=== PATIENT | female | born 1995 | race Caucasian/White ===

== ENCOUNTER 2016-03-16 17:47 | Emergency (ER) | payer OTHER ==
[2016-03-16] MEDS ORDERED: Ketorolac INJ* 30 MG/ML 1 ML VIAL IV ONE (19:00)
[2016-03-16] MEDS: NS 0.9% 1000 ML* 2,000 ML IV ONE (19:37)
[2016-03-16 19:45] LABS: Hematocrit 37 % (35-47); Hemoglobin 12.2 g/dl (12.0-16.0); Mean Corpuscular HGB Conc 33 g/dl (31-36); Mean Corpuscular Hemoglobin 30 pg (27-31); Mean Corpuscular Volume 89 fL (80-97); Mean Platelet Volume 8 um3 (7.4-10.4); Red Blood Count 4.11 10^6/ul (4.0-5.4); Red Cell Distribution Width 13 % (10.5-15); White Blood Count 5.1 10^3/ul (3.5-10.8)
[2016-03-16 19:57] LABS: Urine Bacteria Absent (Absent); Urine Bilirubin Negative (Negative); Urine Glucose Negative (Negative); Urine Nitrite Negative (Negative)
[2016-03-16 20:04] LABS: ALT 11 U/L (7-52); AST 17 U/L (13-39); Albumin 4.3 g/dL (3.2-5.2); Alkaline Phosphatase 42 U/L (34-104); Anion Gap 5 mmol/L (2-11); BUN/Creatinine Ratio 15.4 (8-20); Blood Urea Nitrogen 10 mg/dL (6-24); C Reactive Protein < 1.00 mg/L (< 5.00); CO2 Carbon Dioxide 25 mmol/L (22-32); Calcium 9.5 mg/dL (8.6-10.3); Chloride 107 mmol/L (101-111); EGFR African American 149.4 (>60); EGFR Non-African American 116.2 (>60); Globulin 2.8 g/dL (2-4); Glucose 93 mg/dL (70-100); Potassium 3.9 mmol/L (3.5-5.0); Sodium 137 mmol/L (133-145); Total Protein 7.1 g/dL (6.4-8.9)
[2016-03-16 20:22] LABS: TSH (Thyroid Stimulating Horm) 1.73 mcIU/mL (0.34-5.60)
--- NOTE | 2016-03-16 21:25 | RAD ---
Indication: Heavy vaginal bleeding. Pelvic pain. First day of menstruation. Comparison: None. Technique: Transvaginal pelvic ultrasound. Report: 7.0 x 3.0 x 4.3 cm anteverted uterus. 7.7 mm endometrium. 3.5 x 2.3 x 3.0 cm RIGHT ovary with documented vascular flow is remarkable for small follicles only. 2.8 x 2.3 x 2.4 cm LEFT ovary with documented vascular flow is remarkable for small follicles only. No visualized extra ovarian adnexal region lesions. No significant free pelvic fluid evident. IMPRESSION: Negative pelvic ultrasound.
[2016-03-16] MEDS ORDERED: HYDROcodone/ACETAMIN 5-325 MG* 1 TAB PO ONE (22:19)
--- NOTE | 2016-03-16 22:27 | ED ---
Jenn Chinchilla Erika, scribed for Valentin Martinez MD on 03/16/16 at 1859 . GI/ HPI - HPI Summary HPI Summary: Patient is a 20-year-old female presenting to the ED with a CC of midline vaginal pain during menstruation. Pt reports that when she woke up at 14:00 today, she noticed the pain as well as the start of her period. Pain was initially a cramping pain which temporarily went away, but then returned and has gradually worsened. Currently, she rates pain a 9/10, and describes the pain as feeling similar to a muscle tightness. Pain is not aggravated or alleviated by anything, although pt has been applying pressure to her lower abdomen. Pain does not radiate. Associated symptoms include fever, as well as diaphoresis, chills, decreased appetite, and nausea for the past 2 days. Today, pt also developed increased urinary frequency and dysuria described as the cramping vaginal pain. Pt also reports constipation, unchanged from baseline. She denies vomiting, diarrhea, and blood in stool. Pt reports that she did not have cramping with her periods until 6 months ago, and states her period have become heavier since then. Today, period is even heavier than usual and contains clots. She has never experienced these symptoms before. LNMP 3 weeks ago. Pt is sexually active, and does not take oral contraceptives. A0. Hx concussion at age 16 that has lead to possible seizures with panic disorder - pt takes gabapentin but does not take any psych medications. FHx cervical cancer in mother; father's history is unknown. Pt does not smoke, rarely drinks , and occasionally uses marijuana. - History of Current Complaint Chief Complaint: EDAbdPain Time Seen by Provider: 03/16/16 18:29 Stated Complaint: ABD CRAMPING Hx Obtained From: Patient Onset/Duration: Started Hours Ago, Atraumatic, Still Present Timing: Constant Current Severity: Moderate Pain Intensity: 10 Pain Characteristics: Cramping Associated Signs and Symptoms: Positive: Nausea, Fever, Change in Appetite - Allergy/Home Medications Allergies/Adverse Reactions: Allergies Allergy/AdvReac Type Severity Reaction Status Date / Time No Known Allergies Allergy Unverified 04/15/13 08:46 PMH/Surg Hx/FS Hx/Imm Hx Endocrine/Hematology History: Denies: Hx Anticoagulant Therapy, Hx Diabetes, Hx Thyroid Disease Cardiovascular History: Denies: Hx Hypertension, Hx Pacemaker/ICD Respiratory History: Denies: Hx Asthma, Hx Chronic Obstructive Pulmonary Disease (COPD) GI History: Denies: Hx Ulcer History: Denies: Hx Renal Disease Sensory History: Denies: Hx Hearing Aid Neurological History: Denies: Hx Dementia, Hx Seizures Psychiatric History: Denies: Hx Panic Disorder, Hx Substance Abuse Infectious Disease History: No Infectious Disease History: Denies: Hx Hepatitis, Hx Human Immunodeficiency Virus (HIV), Traveled Outside the [place] in Last 30 Days - Family History Known Family History: Positive: Other - Cervical CA - Social History Lives: With Family Alcohol Use: Rare Hx Substance Use: Yes Substance Use Type: Reports: Marijuana Hx Tobacco Use: No Smoking Status (MU): Never Smoked Tobacco Review of Systems Positive: Fever, Chills, Skin Diaphoresis Gastrointestinal: Other - constipation Positive: Nausea - decreased appetite. Negative: Vomiting, Diarrhea Genitourinary: Other - Vaginal pain, clots with menstruation Positive: dysuria, frequency All Other Systems Reviewed And Are Negative: Yes Physical Exam Triage Information Reviewed: Yes Vital Signs On Initial Exam: Initial Vitals Temp Pulse Resp BP Pulse Ox 100.1 F 94 24 150/98 100 03/16/16 17:59 03/16/16 17:59 03/16/16 17:59 03/16/16 17:59 03/16/16 17:59 Vital Signs Reviewed: Yes Appearance: Positive: Well-Appearing, Pain Distress - Moderate Skin: Positive: Warm, Skin Color Reflects Adequate Perfusion, Dry Head/Face: Positive: Normal Head/Face Inspection Eyes: Positive: EOMI, AB ENT: Positive: Normal ENT inspection Neck: Positive: Supple, Nontender Respiratory/Lung Sounds: Positive: Clear to Auscultation, Breath Sounds Present Cardiovascular: Positive: Tachycardia - with regular rhythm Abdomen Description: Positive: Nontender, Soft, Other: - Some relief of pain with palpation of the abdomen Bowel Sounds: Positive: Present Musculoskeletal: Positive: Normal, Strength/ROM Intact Neurological: Positive: Normal, Sensory/Motor Intact, Alert, Oriented to Person Place, Time Psychiatric: Positive: Affect/Mood Appropriate Diagnostics - Vital Signs Vital Signs Temp Pulse Resp BP Pulse Ox 03/16/16 17:59 100.1 F 94 24 150/98 100 - Laboratory Lab Results: Lab Results 03/16/16 03/16/16 03/16/16 Range/Units 19:25 19:25 19:25 WBC 5.1 (3.5-10.8) 10^3/ul RBC 4.11 (4.0-5.4) 10^6/ul Hgb 12.2 (12.0-16.0) g/dl Hct 37 (35-47) % MCV 89 (80-97) fL MCH 30 (27-31) pg MCHC 33 (31-36) g/dl RDW 13 (10.5-15) % Plt Count 257 (150-450) 10^3/ul MPV 8 (7.4-10.4) um3 Neut % (Auto) 62.0 (38-83) % Lymph % (Auto) 28.7 (25-47) % Phillips % (Auto) 7.3 (1-9) % Eos % (Auto) 1.3 (0-6) % Baso % (Auto) 0.7 (0-2) % Absolute Neuts (auto) 3.2 (1.5-7.7) 10^3/ul Absolute Lymphs (auto) 1.5 (1.0-4.8) 10^3/ul Absolute Monos (auto) 0.4 (0-0.8) 10^3/ul Absolute Eos (auto) 0.1 (0-0.6) 10^3/ul Absolute Basos (auto) 0 (0-0.2) 10^3/ul Absolute Nucleated RBC 0 10^3/ul Nucleated RBC % 0.1 INR (Anticoag Therapy) 0.94 (0.89-1.11) APTT 28.9 (26.0-36.3) seconds Sodium 137 (133-145) mmol/L Potassium 3.9 (3.5-5.0) mmol/L Chloride 107 (101-111) mmol/L Carbon Dioxide 25 (22-32) mmol/L Anion Gap 5 (2-11) mmol/L BUN 10 (6-24) mg/dL Creatinine 0.65 (0.51-0.95) mg/dL Est GFR ( Amer) 149.4 (>60) Est GFR (Non-Af Amer) 116.2 (>60) BUN/Creatinine Ratio 15.4 (8-20) Glucose 93 (70-100) mg/dL Lactic Acid (0.5-2.0) mmol/L Calcium 9.5 (8.6-10.3) mg/dL Total Bilirubin 0.40 (0.2-1.0) mg/dL AST 17 (13-39) U/L ALT 11 (7-52) U/L Alkaline Phosphatase 42 (34-104) U/L C-Reactive Protein < 1.00 (< 5.00) mg/L Total Protein 7.1 (6.4-8.9) g/dL Albumin 4.3 (3.2-5.2) g/dL Globulin 2.8 (2-4) g/dL Albumin/Globulin Ratio 1.5 (1-3) TSH 1.73 (0.34-5.60) mcIU/mL Beta HCG, Quant < 0.60 mIU/mL Urine Color Urine Appearance Urine pH (5-9) Ur Specific [place] (1.010-1.030) Urine Protein (Negative) Urine Ketones (Negative) Urine Blood (Negative) Urine Nitrate (Negative) Urine Bilirubin (Negative) Urine Urobilinogen (Negative) Ur Leukocyte Esterase (Negative) Urine WBC (Auto) (Absent) Urine RBC (Auto) (Absent) Ur Squamous Epith Cells (Absent) Urine Bacteria (Absent) Urine Glucose (Negative) 03/16/16 03/16/16 Range/Units 19:25 19:40 WBC (3.5-10.8) 10^3/ul RBC (4.0-5.4) 10^6/ul Hgb (12.0-16.0) g/dl Hct (35-47) % MCV (80-97) fL MCH (27-31) pg MCHC (31-36) g/dl RDW (10.5-15) % Plt Count (150-450) 10^3/ul MPV (7.4-10.4) um3 Neut % (Auto) (38-83) % Lymph % (Auto) (25-47) % Phillips % (Auto) (1-9) % Eos % (Auto) (0-6) % Baso % (Auto) (0-2) % Absolute Neuts (auto) (1.5-7.7) 10^3/ul Absolute Lymphs (auto) (1.0-4.8) 10^3/ul Absolute Monos (auto) (0-0.8) 10^3/ul Absolute Eos (auto) (0-0.6) 10^3/ul Absolute Basos (auto) (0-0.2) 10^3/ul Absolute Nucleated RBC 10^3/ul Nucleated RBC % INR (Anticoag Therapy) (0.89-1.11) APTT (26.0-36.3) seconds Sodium (133-145) mmol/L Potassium (3.5-5.0) mmol/L Chloride (101-111) mmol/L Carbon Dioxide (22-32) mmol/L Anion Gap (2-11) mmol/L BUN (6-24) mg/dL Creatinine (0.51-0.95) mg/dL Est GFR ( Amer) (>60) Est GFR (Non-Af Amer) (>60) BUN/Creatinine Ratio (8-20) Glucose (70-100) mg/dL Lactic Acid 0.8 (0.5-2.0) mmol/L Calcium (8.6-10.3) mg/dL Total Bilirubin (0.2-1.0) mg/dL AST (13-39) U/L ALT (7-52) U/L Alkaline Phosphatase (34-104) U/L C-Reactive Protein (< 5.00) mg/L Total Protein (6.4-8.9) g/dL Albumin (3.2-5.2) g/dL Globulin (2-4) g/dL Albumin/Globulin Ratio (1-3) TSH (0.34-5.60) mcIU/mL Beta HCG, Quant mIU/mL Urine Color Yellow Urine Appearance Clear Urine pH 5.0 (5-9) Ur Specific [place] 1.016 (1.010-1.030) Urine Protein Negative (Negative) Urine Ketones Negative (Negative) Urine Blood 3+ H (Negative) Urine Nitrate Negative (Negative) Urine Bilirubin Negative (Negative) Urine Urobilinogen Negative (Negative) Ur Leukocyte Esterase Negative (Negative) Urine WBC (Auto) Trace(0-5/hpf) (Absent) Urine RBC (Auto) 3+(>10/hpf) H (Absent) Ur Squamous Epith Cells Present H (Absent) Urine Bacteria Absent (Absent) Urine Glucose Negative (Negative) Result Diagrams: 03/16/16 19:25 03/16/16 19:25 Lab Statement: Any lab studies that have been ordered have been reviewed, and results considered in the medical decision making process. - Ultrasound No standard instances Ultrasound Interpretation Completed By: Radiologist - Transvaginal US - IMPRESSION: Negative pelvic ultrasound. Re-Evaluation - Re-Evaluation First Eval Re-Evaluation Time: 20:10 Comment: Discussed lab results and possible transvaginal US GIGU Course/Dx - Course Assessment/Plan: DISCUSSED RESULTS WITH PATIENT. [facility] OTHERWISE WILL USE NSAIDS. F/U PMD. RETURN IF WORSE. DISCHARGE HOME STABLE. - Diagnoses Provider Diagnoses: Dysmenorrhea Discharge - Discharge Plan Condition: Stable Disposition: HOME Patient Education Materials: Dysmenorrhea (ED), Ibuprofen (By mouth) Additional Instructions: FOLLOW UP WITH YOUR DOCTOR. IBUPROFEN 600MG EVERY 6 HOURS OR NAPROXEN 500MG TWICE A DAY. RETURN TO THE EMERGENCY DEPARTMENT FOR ANY WORSENING OF YOUR CONDITION; PAIN, FEVER, YOU FEEL ILL OR QUESTIONS OR CONCERNS. The documentation as recorded by the Jenn gonzalez Erika accurately reflects the service I personally performed and the decisions made by me, Valentin Martinez MD.
[2016-03-16 22:35] VITALS: BP 112/68
== END 2016-03-16 22:46 | disposition home or self-care (01) ==
LOC: ED 17:47
DX: N94.6 Dysmenorrhea, unspecified (principal)
CPT/HCPCS: 36415; 76830; 80053; 81003; 81015; 83605; 84443; 84702; 85025; 85610; 85730; 86140; 99284; J1885

== ENCOUNTER 2016-04-08 15:27 | Emergency (ER) | payer OTHER ==
[2016-04-08] MEDS ORDERED: Dextrose 50% Syringe 50 ML* 25 GM/50 ML SYRINGE IV PUSH ONE (15:47)
[2016-04-08] MEDS ORDERED: Midazolam* 1 MG/ML 10 ML VIAL (10 MG) ONE (16:21)
[2016-04-08 16:30] LABS: BUN/Creatinine Ratio 18.8 (8-20); Calcium 9.2 mg/dL (8.6-10.3); EGFR African American 139.5 (>60); EGFR Non-African American 108.5 (>60); Potassium 4.1 mmol/L (3.5-5.0)
[2016-04-08 17:37] VITALS: BP 103/57
[2016-04-08 19:06] LABS: Prolactin 39.1 ng/mL (1.0-25.0)
--- NOTE | 2016-04-08 23:48 | CONS ---
NEUROLOGY CONSULTATION: DATE OF CONSULT: 04/08/16 REFERRING PHYSICIAN: Dr. Elizabeth. LOCATION: She is in the emergency room. CHIEF COMPLAINT: Seizures like episodes. HISTORY OF PRESENT ILLNESS: Anisha Salter is a 20-year-old right-handed woman who has had episodes of generalized stiffening with unresponsiveness going back over a year. I believe it was in 2012 that she had an athletic-associated head injury. There was no loss of consciousness at the scene, but she lost consciousness in the emergency room while being evaluated. Since that time, she has had chronic headaches as well as episodes of unresponsiveness. Episodes typically begin with panic attacks. Her boyfriend provides history as does her parents. She will become very anxious and start to hyperventilate. She may lose consciousness. Sometimes, is able to be aborted. With episode, her eyes will deviate upwards and she will have stiffening. She will go months without them and have multiple ones together. She started a new job about 4 days ago. She was rushing to get to work and was very anxious according to her boyfriend. At work, she had episodes where she became very anxious and they told her to go sit down in a back room. Apparently , she had episodes of stiffening and loss of consciousness. Her coworkers decided to call an ambulance. Typically her family just continues to observe her as prior evaluations have been negative, see below. She apparently had episode in the ambulance and was given Versed. She has not had an episode here in the emergency room. Episodes consist of arching of her back and upward deviation of her eyes and stiffening. Dr. Elizabeth said that he observed an episode where her back was arched and she flexed her legs upwards. The episode lasted a minute or two and after that, she was a bit groggy, but within 2 minutes, she is talking and making sense. There is no tongue biting or incontinence. She had an EEG on 03/12/15, which was normal. It was recommended by Dr. Taylor Marley who saw her as an outpatient to have an epilepsy monitoring in [place] and she was referred there. However, apparently, she lived in [place] for a while and did not go and never followed up. Prior to head injury in 2012, there were no problems with panic attacks, headaches, or seizure-like episodes. Only medication is gabapentin which has taken ever since the head injury and she was put on by Dr. Pires of Neurosurgery. She states that she takes it every day initially for headaches and panic attacks, but she still has headaches every day and she does not feel it helps, but takes it any way. She was on some medications for anxiety attacks in the past including alprazolam. Some other medicines they do not recall the names of. They said that it either did not work or they made her feel too groggy. PAST MEDICAL HISTORY: Otherwise unremarkable. MEDICATIONS: She is not on any medications but gabapentin. ALLERGIES: She does not have any drug allergies. FAMILY HISTORY: Notable for diabetes in her father. SOCIAL HISTORY: She is a nonsmoker, drinks alcohol occasionally, smokes marijuana occasionally. REVIEW OF SYSTEMS: Negative for cardiac disease, other head trauma, remote seizures. No recent illnesses, fevers, or infections. She does not have diabetes. PHYSICAL EXAM: She is well nourished and well hydrated. Skin is warm and dry. Blood pressure is 110/72 on the monitor, heart rate 70 and regular, respirations 16. Heart is in a regular rhythm without murmurs. Lungs are clear. Neck is supple. There are no cervical bruits. Oral mucosa is moist and there is no oral trauma. Neurologically, pupils react equally from 4 to 2 mm. Funduscopic exam is normal bilaterally. Eye movements are full. Visual cruz are full to confrontation. Facial musculature and sensation are intact and symmetric. Palate and tongue are normal and speech is clear. Hearing is intact bilaterally and neck strength is normal. Motor exam reveals normal muscle tone and strength in the limbs proximally and distally. There is no pronator drift. There is an oscillating like tremor of her upper extremities when testing for pronator drift. There is no rest, sustention, or action tremor otherwise. Finger taps are normal in the hands. Sensory exam to light touch and vibration is normal in the extremities. Reflexes are intact and symmetric in upper and lower extremities and plantar responses are flexor. I did not attempt to ambulate her. She is alert and oriented throughout the entire visit. Memory is intact and language is fluent. Attention, concentration, and fund of knowledge are all adequate. DIAGNOSTIC STUDIES/LAB DATA: Includes an MRI of the brain from 05/16/12 interpreted as normal. EEG from 03/12/15 interpreted as normal. CBC on 03/16/16 was normal. Chemistry profile today is normal other than glucose of 259, she was given glucose in the field, I believe. Apparently, her fingerstick glucose was 70 when she came in. 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 She also has panic and anxiety disorder. We talked about the differential diagnosis including hyperventilation due to syncope, epilepsy, and nonepileptic psychogenic spells. We recommended that she go home on her current gabapentin and I will discuss with Dr. Marley possibly having her admitted for epilepsy monitoring or at least follow up in the office. Discussed this at length with the patient and her family and boyfriend and answered their questions. They are in agreement with the plan. I also discussed briefly with Dr. Elizabeth of the emergency room. CC: Dr. Marley * [id number]/[facility] #: [id number] MTDD
--- NOTE | 2016-04-11 23:38 | ED ---
Von Chinchilla Benjamin, scribed for Alfred Elizabeth MD on 04/08/16 at 1539 . Altered Mental Status - HPI Summary HPI Summary: 20yo female BIB EMS for a witnessed Sz episode at work. Pt was assisted to the ground by her coworkers with no associated head injury. Pt had another grand mal episode en route at 1508. Blood sugar en route was 71. Pt has hx of anxiety but no prior hx of Sz, and takes gabapentin. Unable to obtain full HPI from pt due to postictal status. - History Of Current Complaint Stated Complaint: SIEZURE Time Seen by Provider: 04/08/16 15:30 Hx Obtained From: Patient, EMS Hx From Patient Unobtainable Due To: Altered Mental Status - postictal Hx Last Menstrual Period: 12/21/2011 Onset/Duration: Unknown Timing: Lasting Minutes Severity Initially: Moderate Severity Currently: None Character: Confusion - drowsy Aggravating Factor(s): Nothing Alleviating Factor(s): Nothing Associated Signs And Symptoms: Positive: Seizure Related History: Seizure - Allergies/Home Medications Allergies/Adverse Reactions: Allergies Allergy/AdvReac Type Severity Reaction Status Date / Time No Known Allergies Allergy Unverified 04/15/13 08:46 PMH/Surg Hx/FS Hx/Imm Hx Endocrine/Hematology History: Denies: Hx Anticoagulant Therapy, Hx Diabetes, Hx Thyroid Disease Cardiovascular History: Denies: Hx Hypertension, Hx Pacemaker/ICD Respiratory History: Denies: Hx Asthma, Hx Chronic Obstructive Pulmonary Disease (COPD) GI History: Denies: Hx Ulcer History: Denies: Hx Renal Disease Sensory History: Denies: Hx Hearing Aid Neurological History: Denies: Hx Dementia, Hx Seizures Psychiatric History: Reports: Hx Anxiety Denies: Hx Panic Disorder, Hx Substance Abuse Infectious Disease History: Denies: Hx Hepatitis, Hx Human Immunodeficiency Virus (HIV) - Family History Known Family History: Positive: Other - Cervical CA - Social History Occupation: Employed Full-time Lives: With Family Alcohol Use: Rare Hx Substance Use: Yes Substance Use Type: Reports: Marijuana Hx Tobacco Use: No Smoking Status (MU): Never Smoked Tobacco Review of Systems Constitutional: Negative Eyes: Negative ENT: Negative Cardiovascular: Negative Respiratory: Negative Gastrointestinal: Negative Genitourinary: Negative Musculoskeletal: Negative Skin: Negative Neurological: Other - drowsy Psychological: Normal All Other Systems Reviewed And Are Negative: Yes Physical Exam Triage Information Reviewed: Yes Vital Signs On Initial Exam: Initial Vitals Temp Pulse Resp BP Pulse Ox 98.7 F 79 18 127/82 100 04/08/16 15:45 04/08/16 15:45 04/08/16 15:45 04/08/16 15:45 04/08/16 15:45 Vital Signs Reviewed: Yes Appearance: Positive: Well-Appearing, No Pain Distress, Well-Nourished Skin: Positive: Warm, Skin Color Reflects Adequate Perfusion, Dry Head/Face: Positive: Normal Head/Face Inspection Eyes: Positive: Normal, Other: - dilated pupills, but responsive ENT: Positive: Hearing grossly normal Neck: Positive: Supple, Nontender Respiratory/Lung Sounds: Positive: Clear to Auscultation, Breath Sounds Present Cardiovascular: Positive: RRR Abdomen Description: Positive: Nontender Bowel Sounds: Positive: Present Musculoskeletal: Positive: Strength/ROM Intact Neurological: Positive: Sensory/Motor Intact, Alert, Oriented to Person Place, Time, CN Intact II-III, Other - drowsy Diagnostics - Vital Signs Vital Signs Temp Pulse Resp BP Pulse Ox 04/08/16 17:30 103/57 04/08/16 17:00 82 18 110/66 95 04/08/16 16:30 85 14 116/59 100 04/08/16 16:05 84 16 100 04/08/16 15:45 98.7 F 79 18 127/82 100 - Laboratory Lab Results: Lab Results 04/08/16 04/08/16 Range/Units 16:00 16:34 Sodium 133 (133-145) mmol/L Potassium 4.1 (3.5-5.0) mmol/L Chloride 104 (101-111) mmol/L Carbon Dioxide 24 (22-32) mmol/L Anion Gap 5 (2-11) mmol/L BUN 13 (6-24) mg/dL Creatinine 0.69 (0.51-0.95) mg/dL Est GFR ( Amer) 139.5 (>60) Est GFR (Non-Af Amer) 108.5 (>60) BUN/Creatinine Ratio 18.8 (8-20) Glucose 81 (70-100) mg/dL POC Glucose (mg/dL) 259 H (74-106) mg/dL Calcium 9.2 (8.6-10.3) mg/dL Prolactin 39.1 H (1.0-25.0) ng/mL Result Diagrams: 04/08/16 16:00 Lab Statement: Any lab studies that have been ordered have been reviewed, and results considered in the medical decision making process. Re-Evaluation - Re-Evaluation First Eval Re-Evaluation Time: 16:05 Comment: spoke to parents. Parents state that the pt only had two bites of food today, advised parents to make sure pt has adequent amounts of food. Second Eval Re-Evaluation Time: 16:19 Comment: another Sz episode at the ED. Altered Mental Statu Course/Dx - Course Assessment/Plan: Will recheck pt's blood sugar draw blood for BMP, then will call her neurologist. Informed her parents about her condition. Dr. Almazan decided to discharge the pt. He will go talk to the pt and family and will arrange follow up plans as well. - Diagnoses Differential Diagnosis/HQI/PQRI: Seizure Discharge Diagnoses: Seizure - Provider Notifications Discussed Care Of Patient With: Dr. Almazan (Neurologist) @[id number], [phone]. Dr. Almazan will come in to see the pt. Discharge - Discharge Plan Condition: Improved Disposition: HOME Patient Education Materials: Epilepsy (ED) Referrals: Garrick Almazan MD [Medical Doctor] - 3 Days The documentation as recorded by the Von gonzalez Benjamin accurately reflects the service I personally performed and the decisions made by me, Alfred Elizabeth MD.
== END 2016-04-08 17:45 | disposition home or self-care (01) ==
LOC: ED 15:27
DX: R55 Syncope and collapse (principal); R56.9 Unspecified convulsions
CPT/HCPCS: 36415; 80048; 84146; 99283; J2250

== ENCOUNTER 2016-04-14 12:52 | Emergency (ER) | payer OTHER ==
[2016-04-14 13:23] VITALS: BP 139/76
--- NOTE | 2016-04-14 16:39 | UC ---
Abdoulaye Chinchilla Michael, scribed for Sunita Cotton MD on 04/14/16 at 1342 . Skin Complaint HPI - HPI Summary HPI Summary: 20 y/o female comes to [facility] presenting with hardness to the vein on her LUE where she had an IV inserted on 04/08/16 when she was taken to [facility] ED for a sz. The pt states that since the ED visit the site of insertion has been bothersome. Today the arm pain is radiating up her LUE to her left jaw. The PMHx is significant for seizures. - History of Current Complaint Chief Complaint: UCSkin Time Seen by Provider: 04/14/16 13:25 Stated Complaint: ARM PAIN Hx Obtained From: Patient, Family/Hospital Clerk, Medical Records Hx Last Menstrual Period: 1 WEEK AGO ?: No Onset/Duration: Gradual Onset, Lasting Weeks, Still Present Skin Exposure Onset/Duration: Weeks Ago Timing: Constant Onset Severity: Moderate Current Severity: Moderate Pain Intensity: 6 Pain Scale Used: 0-10 Numeric Location: Other - LUE Character: Swelling, Painful - hardness Aggravating: Nothing Alleviating: Nothing Associated Signs & Symptoms: Positive: Negative Related History: Other: - IV insertion LUE - Allergy/Home Medications Allergies/Adverse Reactions: Allergies Allergy/AdvReac Type Severity Reaction Status Date / Time No Known Allergies Allergy Verified 04/14/16 13:15 Home Medications: Home Medications Gabapentin CAP(*) [Neurontin 300 CAP(*)] 1 tab PO TID 04/14/16 [History Confirmed 04/14/16] Review of Systems Constitutional: Negative - fever Respiratory: Negative Cardiovascular: Negative Musculoskeletal: Other: - LUE pain and hardness to vein. All Other Systems Reviewed And Are Negative: Yes PMH/Surg Hx/FS Hx/Imm Hx Previously Healthy: No - seizures Neurological History Of: Reports: Seizures Psychological History Of: Denies: Anxiety, Depression, Bipolar Disorder, Schizophrenia, Post Traumatic Stress Disorder Other History Of: Negative For: Anticoagulant Therapy - Surgical History Surgical History: None - Family History Known Family History: Positive: Other - Cervical CA - Social History Occupation: Student Lives: With Family Alcohol Use: Rare Substance Use Type: Marijuana Smoking Status (MU): Never Smoked Tobacco - Immunization History Most Recent Influenza Vaccination: NOT THIS YEAR Vaccination Up to Date: Yes Physical Exam Triage Information Reviewed: Yes Vital Signs: Initial Vital Signs Temp 99.6 F 04/14/16 13:16 Pulse 96 04/14/16 13:16 Resp 16 04/14/16 13:16 BP 139/76 04/14/16 13:16 Pulse Ox 100 04/14/16 13:16 Vital Signs Reviewed: Yes - Additional Comments Appearance: Well-appearing, mild pain distress, Well-nourished Eyes: Conjunctiva clear ENT: Normal appearance Neck: Supple Respiratory: Lungs clear, Normal breath sounds, no respiratory distress Cardio: RRR, No murmur, pulses normal, brisk capillary refill Musculoskeletal: pain and induration of the left antecubital space, swollen, not red or hot; no definite cord palpable; full ROM Neuro: Alert, muscle tone normal; nonfocal Psychological: Normal Skin: Normal Course/Dx - Course Course Of Treatment: Transfered to [facility] to rule out DVT and consulted Dr. Coughlin at 1424. - Differential Diagnoses - Skin Complaint Differential Diagnoses: Abscess, Cellulitis, Other - DVT - Diagnoses Provider Diagnoses: left arm pain s/p IV insertion. eval for DVT Discharge - Discharge Plan Condition: Stable Disposition: AGAINST MEDICAL ADVICE Discharge Disposition Comment: Pt will go by private car to [facility] ED with mother driving Referrals: Lis Crowell MD [Primary Care Provider] - The documentation as recorded by the Abdoulaye gonzalez Michael accurately reflects the service I personally performed and the decisions made by me, Sunita Cotton MD.
== END 2016-04-14 14:47 | disposition left against medical advice (07) ==
LOC: UCEAST 12:52
DX: M79.602 Pain in left arm (principal); F12.90 Cannabis use, unspecified, uncomplicated
CPT/HCPCS: 99212; G0463

== ENCOUNTER 2016-04-14 15:09 | Emergency (ER) | payer OTHER ==
[2016-04-14 15:15] VITALS: BP 115/67
--- NOTE | 2016-04-14 15:47 | ED ---
Upper Extremity Pain - HPI Summary HPI Summary: 20 F w/ PMH of seizure presents with left antecubital pain s/p IV insertion on . She said that the vein feels firmer and cord like. She says the pain has increased and is not moving up her arm to the side of her neck. She denies any redness or swelling or fever. She used ibuprofen for the pain yesterday without relief. Pain is greatest with movement of left elbow. She is right handed. She denies any trauma to the area. - History of Current Complaint Hx Last Menstrual Period: 1 WEEK AGO <Laura Castillo - Last Filed: 04/14/16 20:13> <Nelson Coughlin - Last Filed: 04/14/16 21:01> - History of Current Complaint Chief Complaint: EDExtremityUpper Stated Complaint: LT ARM PAIN Time Seen by Provider: 04/14/16 15:18 - Allergies/Home Medications Allergies/Adverse Reactions: Allergies Allergy/AdvReac Type Severity Reaction Status Date / Time No Known Allergies Allergy Verified 04/14/16 13:15 PMH/Surg Hx/FS Hx/Imm Hx Endocrine/Hematology History: Denies: Hx Anticoagulant Therapy, Hx Diabetes, Hx Thyroid Disease Cardiovascular History: Denies: Hx Hypertension, Hx Pacemaker/ICD Respiratory History: Denies: Hx Asthma, Hx Chronic Obstructive Pulmonary Disease (COPD) GI History: Denies: Hx Ulcer History: Denies: Hx Renal Disease Sensory History: Denies: Hx Hearing Aid Neurological History: Denies: Hx Dementia, Hx Seizures Psychiatric History: Denies: Hx Panic Disorder, Hx Substance Abuse Infectious Disease History: No Infectious Disease History: Denies: Hx Clostridium Difficile, Hx Hepatitis, Hx Human Immunodeficiency Virus (HIV), Hx of Known/Suspected MRSA, Hx Shingles, Hx Tuberculosis, Hx Known/ Suspected VRE, Hx Known/Suspected VRSA, History Other Infectious Disease, Traveled Outside the [place] in Last 30 Days - Family History Known Family History: Positive: Other - Cervical CA Negative: Cardiac Disease - Social History Alcohol Use: Rare Hx Substance Use: Yes Substance Use Type: Reports: Marijuana Hx Tobacco Use: No Smoking Status (MU): Never Smoked Tobacco <Laura Castillo - Last Filed: 04/14/16 20:13> Review of Systems Negative: Fever Negative: Chest Pain Negative: Shortness Of Breath Positive: Other - tenderness to left cephalic vein All Other Systems Reviewed And Are Negative: Yes <Laura Castillo - Last Filed: 04/14/16 20:13> Physical Exam Triage Information Reviewed: Yes Vital Signs On Initial Exam: Initial Vitals Temp Pulse Resp BP Pulse Ox 98.4 F 97 17 115/67 100 04/14/16 15:11 04/14/16 15:11 04/14/16 15:11 04/14/16 15:11 04/14/16 15:11 Vital Signs Reviewed: Yes Appearance: Positive: Well-Appearing Skin: Positive: Warm, Dry, Other - cord like cephalic vein with tenderness Head/Face: Positive: Normal Head/Face Inspection Eyes: Positive: Normal, Conjunctiva Clear ENT: Positive: Normal ENT inspection, Pharynx normal, TMs normal Respiratory/Lung Sounds: Positive: Clear to Auscultation, Breath Sounds Present Cardiovascular: Positive: Normal, RRR Musculoskeletal: Positive: Strength/ROM Intact - of left wrist and shoulder and neck, Limited @ - left elbow due to pain <Laura Castillo - Last Filed: 04/14/16 20:13> Vital Signs On Initial Exam: Initial Vitals Temp Pulse Resp BP Pulse Ox 98.4 F 97 17 115/67 100 04/14/16 15:11 04/14/16 15:11 04/14/16 15:11 04/14/16 15:11 04/14/16 15:11 <Nelson Coughlin - Last Filed: 04/14/16 21:01> Diagnostics - Vital Signs Vital Signs Temp Pulse Resp BP Pulse Ox 04/14/16 15:11 98.4 F 97 17 115/67 100 - Ultrasound No standard instances Ultrasound Interpretation: Positive (See Comments) - SOFT TISSUES: Thrombotic occlusion of the left cephalic vein without sonographic evidence of left upper extremity DVT. IMPRESSION: No sonographic evidence of deep vein thrombosis. Ultrasound Interpretation Completed By: Radiologist <Laura Castillo - Last Filed: 04/14/16 20:13> - Vital Signs Vital Signs Temp Pulse Resp BP Pulse Ox 04/14/16 15:11 98.4 F 97 17 115/67 100 <Nelson Coughlin - Last Filed: 04/14/16 21:01> Course/Dx - Course Course Of Treatment: 20 F presents with tendneress to left antecubital region that started after IV insertion on 04/08. Since then the pain has spread up arm and into neck. She states the vein the inserted the IV feels firmer. U/S shows thrombosis of cephalic vein but no DVT. explained this to patient and instructed to massage area, place heat on it, take NSAIDs, and follow up with primary, instructed to return to ED immediately if develops chest pain or SOB, patient understands and agrees with plan - Diagnoses Differential Diagnosis/HQI/PQRI: Positive: Other - DVT, cellulitis, abscess <Laura Castillo - Last Filed: 04/14/16 20:13> - Course Assessment/Plan: I was available for consultation. This patient was seen by mid level provider. The patient was not presented, seen, or examined by me. WR. <Nelson Coughlin - Last Filed: 04/14/16 21:01> - Diagnoses Provider Diagnoses: Thrombosis of left cephalic vein Discharge <Laura Castillo - Last Filed: 04/14/16 20:13> <Nelson Coughlin - Last Filed: 04/14/16 21:01> - Discharge Plan Condition: Good Disposition: HOME Patient Education Materials: Superficial Thrombophlebitis (ED) Referrals: Lis Crowell MD [Primary Care Provider] - Additional Instructions: Place heat on area and massage Take ibuprofen every 6 hours for pain Follow up with primary in 7 days if no improvement Return to ED if develop any new or worsening symptoms
--- NOTE | 2016-04-14 16:29 | RAD ---
HISTORY: Pain at left antecubital IV insertion site COMPARISON: None. TECHNIQUE: Multiple transverse and longitudinal ultrasound images were obtained of the veins of the right lower extremity upper extremity using grayscale, color Doppler, and spectral Doppler imaging with and without compression and with augmentation. FINDINGS: VEINS: The axillary, brachial and basilic are compressible throughout their course, with normal flow on color Doppler imaging and normal response to augmentation on spectral Doppler imaging. The subclavian vein exhibits appropriate augmentation and phasicity. The radial and ulnar veins are compressible. There is occlusive thrombus and absence of flow in the cephalic vein. Evidence of adequate flow is identified in the right internal jugular and subclavian vein as well. SOFT TISSUES: Thrombotic occlusion of the left cephalic vein without sonographic evidence of left upper extremity DVT. IMPRESSION: No sonographic evidence of deep vein thrombosis.
== END 2016-04-14 17:40 | disposition home or self-care (01) ==
LOC: ED 15:09
DX: I82.612 Acute embolism and thrombosis of superficial veins of left upper extremity (principal)
CPT/HCPCS: 99281

== ENCOUNTER 2016-05-19 14:35 | Emergency (ER) | payer OTHER ==
[2016-05-19] MEDS ORDERED: LORazepam TAB(*) 1 MG PO ONE (15:04)
--- NOTE | 2016-05-19 16:07 | RAD ---
Indication: Nodule in the forearm and biceps. Duplex Doppler sonography of the left upper extremity deep venous system was performed. The left internal jugular vein appears patent and compressible. Bilaterally the subclavian veins appear patent and compressible. The left brachial vein and basilic vein are patent and compressible. The left cephalic vein demonstrates a short segment of noncompressibility consistent with thrombosis of a short segment of the cephalic vein. This is unchanged from April 14, 2016. Evaluation of the forearm demonstrates no evidence of abnormal masses. IMPRESSION: Short segment of cephalic vein remains thrombosed and is unchanged from previous exam of April 14, 2016. No new areas of thrombosis is noted.
[2016-05-19 16:51] VITALS: BP 115/73
--- NOTE | 2016-05-19 16:59 | ED ---
Skin Complaint - HPI Summary HPI Summary: Patient arrives in ED in anxiety distress and hyperventilating. She is concerned over a left forearm mass which she noticed about an hour ago. She was seen in the ED 5 weeks ago for a similar concern in the left bicep. US was negative for DVT, but shows a cephalic vein thrombosis. Patient had recently had an IV placement, and the concern was for superficial thrombophlebitis. She denies warmth, redness but endorses pain in both areas of the left bicep and the left forearm. She has been using heating pads to the area over the bicep, but has not noticed a change in size. Patient states she feels a cord-like structure under the skin. Denies recent surgery, blood thinners, OCP use, travel history. Patient afebrile on exam. Recently after arrival, patient experienced a seizure for approximately 10 minutes witnessed by myself, the RN and her family. Family states she has anxiety issues without agoraphobia and has recently been diagnosed in the last 2 years with a seizure disorder although has not started medications yet. She has approx 1 seizure per week and can last up to 1 hour per partner. - History of Current Complaint Chief Complaint: EDRashSkinAbscess Time Seen by Provider: 05/19/16 14:44 Stated Complaint: PANIC ATTACK Hx Obtained From: Patient Hx Last Menstrual Period: 1 WEEK AGO Onset/Duration: Started Hours Ago Skin Exposure Onset/Duration: Hours Ago Timing: Constant Onset Severity: Moderate Current Severity: Moderate Pain Intensity: 3 Pain Scale Used: 0-10 Numeric Skin Location: Discrete - left forearm proximal to wrist on lateral side; small nodule cord-like mass over left bicep unchanged since 5 weeks ago Aggravating Symptom(s): Nothing Alleviating Symptom(s): Nothing Associated Signs & Symptoms: Nausea - Allergy/Home Medications Allergies/Adverse Reactions: Allergies Allergy/AdvReac Type Severity Reaction Status Date / Time No Known Allergies Allergy Verified 05/19/16 14:36 PMH/Surg Hx/FS Hx/Imm Hx Previously Healthy: Yes Endocrine/Hematology History: Denies: Hx Anticoagulant Therapy, Hx Diabetes, Hx Thyroid Disease Cardiovascular History: Denies: Hx Hypertension, Hx Pacemaker/ICD Respiratory History: Denies: Hx Asthma, Hx Chronic Obstructive Pulmonary Disease (COPD) GI History: Denies: Hx Ulcer History: Denies: Hx Renal Disease Sensory History: Denies: Hx Hearing Aid Neurological History: Denies: Hx Dementia, Hx Seizures Psychiatric History: Denies: Hx Panic Disorder, Hx Substance Abuse Infectious Disease History: No Infectious Disease History: Denies: Hx Clostridium Difficile, Hx Hepatitis, Hx Human Immunodeficiency Virus (HIV), Hx of Known/Suspected MRSA, Hx Shingles, Hx Tuberculosis, Hx Known/ Suspected VRE, Hx Known/Suspected VRSA, History Other Infectious Disease, Traveled Outside the [place] in Last 30 Days - Family History Known Family History: Positive: Other - Cervical CA Negative: Cardiac Disease - Social History Occupation: Unemployed Lives: With Family Alcohol Use: Rare Hx Substance Use: Yes Substance Use Type: Reports: Marijuana Hx Tobacco Use: No Smoking Status (MU): Never Smoked Tobacco Review of Systems Constitutional: Negative ENT: Negative Cardiovascular: Negative Respiratory: Negative Positive: Other - 2 small nodules. 1 nodule over left bicep palpated as a cord- like mass, small 1cm nodule over lateral side of left forearm Neurological: Negative, Other - seizure noted on arrival to ED room Positive: Anxious All Other Systems Reviewed And Are Negative: Yes Physical Exam Triage Information Reviewed: Yes Vital Signs On Initial Exam: Initial Vitals Temp Pulse Resp BP Pulse Ox 97.5 F 85 18 123/71 100 05/19/16 14:36 05/19/16 14:36 05/19/16 14:36 05/19/16 14:36 05/19/16 14:36 Vital Signs Reviewed: Yes Appearance: Positive: Well-Appearing, Well-Nourished Skin: Positive: Warm, Skin Color Reflects Adequate Perfusion, Other - 2 small nodules. 1 nodule over left bicep palpated as a cord-like mass, small 1cm nodule over lateral side of left forearm Head/Face: Positive: Normal Head/Face Inspection Eyes: Positive: AB Neck: Positive: Supple, Nontender, No Lymphadenopathy Respiratory/Lung Sounds: Positive: Clear to Auscultation Cardiovascular: Positive: Normal, RRR Musculoskeletal: Positive: Normal, Strength/ROM Intact Neurological: Positive: Other - seizure activity on arrival to ED. post-ictal state x <10 min Psychiatric: Positive: Normal AVPU Assessment: Alert - Sofya Coma Scale Best Eye Response: 4 - Spontaneous Best Motor Response: 6 - Obeys Commands Best Verbal Response: 5 - Oriented Coma Scale Total: 15 Diagnostics - Vital Signs Vital Signs Temp Pulse Resp BP Pulse Ox 05/19/16 16:50 98.3 F 79 16 115/73 05/19/16 15:24 16 05/19/16 14:36 97.5 F 85 18 123/71 100 - Laboratory Lab Statement: Any lab studies that have been ordered have been reviewed, and results considered in the medical decision making process. - Ultrasound No standard instances Ultrasound Interpretation: Positive (See Comments) Ultrasound Interpretation Completed By: Radiologist - IMPRESSION: Short segment of cephalic vein remains thrombosed and is unchanged from previous exam of April 14, 2016. No new areas of thrombosis is noted. Course/Dx - Course Course Of Treatment: Ativan given on arrival to ED. Patient experienced a focal seizure lasting approx 7 min while in ED without complications. She is being followed by Dr. Marley for this and does not take medications. US of both nodules of forearm and bicep. Short segment of cephalic cein remains thrombosed and unchanged from previous exam. No evidence of DVT. Possible superficial thrombophlebitis, or thrombosis without phlebitis. Patient made aware of results. Patient feeling better upon discharge and will follow up. - Differential Diagnoses - Skin Complaint Differential Diagnoses: Angioedema, Erythema Nodosum, Lymphangitis, Other - superficial thrombophlebitis - Diagnoses Provider Diagnoses: Thrombosis of left cephalic vein Discharge - Discharge Plan Condition: Stable Disposition: HOME Patient Education Materials: Superficial Thrombophlebitis (ED) Referrals: Lis Crowell MD [Primary Care Provider] - Additional Instructions: Follow up with PCP regarding thrombosis. If symptoms worsen, you notice redness, warmth, swelling or you develop a fever , come back o ED. Warm hot packs to the area, ibuprofen as needed for pain. Images - Images Full Body (No Head): 1 - small 1 cm nodule without warmth, redness 2 - small 2cm cord-like nodule without warmth, redness or color changes. not painful on palpation
== END 2016-05-19 16:50 | disposition home or self-care (01) ==
LOC: ED 14:35
DX: I82.612 Acute embolism and thrombosis of superficial veins of left upper extremity (principal); R06.4 Hyperventilation; F41.9 Anxiety disorder, unspecified
CPT/HCPCS: 99282; A9270-GY